=== PATIENT | female | born 1945 | race Caucasian/White ===

== ENCOUNTER → 2017-01-26 | Outpatient (CLI) | payer MEDICARE, MEDICAID ==
[~2017-01-26] MED LIST: ACET-2198 PO; ACET-2321 PO; ASPI81TA2 PO; ATOR10TA64 PO; CALC-1038 PO; DIPH25TA54 PO; DOCU240C25 PO; ESCI10TA PO; FEXO-11 PO; HYDR-4246 PO; LEVO500T63 PO; LOSA25TA34 PO; MENT71OI TOP; METO50TA5 PO; MIRT15TA PO; MULT1CAP32 PO
[2017-01-26 15:15] LABS: ALBUMIN 4.2 G/DL (3.5-5.0); ALBUMIN/GLOBULIN RATIO 1.6 RATIO (1.1-2.2); ALKALINE PHOSPHATASE 67 U/L (38-126); ALT (SGPT) 36 U/L (9-52); ANION GAP 11 MEQ/L (5-15); AST (SGOT) 29 U/L (14-36); BUN/CREATININE RATIO 9 RATIO (6-26); CALCIUM 9.8 MG/DL (8.4-10.2); CHLORIDE 99 MEQ/L (98-107); CO2 - CARBON DIOXIDE 29 MEQ/L (22-30); CREATININE 0.7 MG/DL (0.7-1.2); GLOMERULAR FILTRATION RATE 82; GLUCOSE 100 MG/DL (65-110); LDH 488 U/L (313-618); POTASSIUM 4.4 MEQ/L (3.6-5); SODIUM 139 MEQ/L (134-144); TOTAL PROTEIN 6.8 G/DL (6.3-8.2)
== END ==
LOC: LABN 15:04
PROVIDERS: ATTEND Internal Medicine Hematology & Oncology
DX: R91.1 Solitary pulmonary nodule (principal)
CPT/HCPCS: 80053; 83615